=== PATIENT | female | born 1985 | race Caucasian/White ===

== ENCOUNTER 2017-04-18 15:21 | Emergency (ER) | payer SELFPAY ==
[~2017-04-18] VITALS: Ht 149.9 cm; Wt 44.5 kg
[~2017-04-18 15:21] MED LIST: CEPH500C3 PO; IBUP800 PO
[2017-04-18 15:23] VITALS: BP 128/82; PULSE 100; RESP 24; TEMP 98.8; O2SAT 97
--- NOTE | 2017-04-18 16:00 | RADRPT ---
EXAM DATE/TIME: 04/18/2017 15:53 [place] COMPARISON: No previous studies available for comparison. INDICATIONS : Chest pain. MEDICAL HISTORY : None. SURGICAL HISTORY : None. ENCOUNTER: Initial ACUITY: 2 days PAIN SCORE: 8/10 LOCATION: Bilateral chest FINDINGS: A single view of the chest demonstrates the lungs to be symmetrically aerated without evidence of mas s, infiltrate or effusion. The cardiomediastinal contours are unremarkable. Osseous structures are intact. CONCLUSION: No acute disease. Valerio Barton MD on April 18, 2017 at 15:56 Board Certified Radiologist. This report was verified electronically.
[2017-04-18 16:06] LABS: AUTOMATED NEUTROPHIL # 8.5 TH/MM3 (1.8-7.7); BASOPHIL % 0.3 % (0.0-2.0); EOSINOPHIL % 0.2 % (0.0-4.0); HEMATOCRIT 43.5 % (35.0-46.0); HEMOGLOBIN 14.7 GM/DL (11.6-15.3); LYMPH % 12.9 % (9.0-44.0); LYMPHOCYTE # 1.4 TH/MM3 (1.0-4.8); MEAN CELL VOLUME 88.3 FL (80.0-100.0); MEAN CORPUSCULAR HEMOGLOBIN 29.8 PG (27.0-34.0); MEAN CORPUSCULAR HGB CONC 33.8 % (32.0-36.0); MEAN PLATELET VOLUME 8.3 FL (7.0-11.0); MONO % 8.8 % (0.0-8.0); NEUT % 77.8 % (16.0-70.0); PLATELET COUNT 322 TH/MM3 (150-450); RED BLOOD COUNT 4.93 MIL/MM3 (4.00-5.30); RED CELL DISTRIBUTION WIDTH 14.3 % (11.6-17.2); WHITE BLOOD COUNT 10.9 TH/MM3 (4.0-11.0)
[2017-04-18 16:26] LABS: BICARBONATE 23.5 MEQ/L (21.0-32.0); BLOOD UREA NITROGEN 8 MG/DL (7-18); CALCIUM 9.4 MG/DL (8.5-10.1); CHLORIDE 104 MEQ/L (98-107); CREATININE 0.62 MG/DL (0.50-1.00); GLOMERULAR FILTRATION RATE 114 ML/MIN (>89); GLUCOSE,RANDOM 83 MG/DL (74-106); SODIUM (NA) 137 MEQ/L (136-145)
[2017-04-18 16:29] LABS: TROPONIN I LESS THAN 0.02 NG/ML (0.02-0.05)
--- NOTE | 2017-04-18 18:19 | PD ---
HPI Chief Complaint: Chest Pain Time Seen by Provider: 18:11 Travel History International Travel<30 days: No Contact w/Intl Traveler<30days: No Traveled to known affect area: No History of Present Illness HPI 31-year-old female here for evaluation of chest pain. The patient reports sharp right-sided chest pain for the last 2 days that is moderate, worse with coughing and deep inspiration. She takes control. No hemoptysis. No history of DVT or PE. No history of cardiac disease. No fevers, chills, or recent illness. Cough is nonproductive. No paresthesias or motor deficits. No family history of cardiac disease. She is a nonsmoker and denies illicit drug use. Cardiac workup was performed in triage including labs, cardiac enzymes, EKG, and chest x-ray, no results are essentially unremarkable. PFSH Past Medical History Diminished Hearing: No Insomnia: No Immunizations Current: No : 3 Para: 1 Miscarriage: 1 : 1 Past Surgical History Section: Yes Gynecologic Surgery: Yes (C SECTION) Insulin Pump: No Thoracic Surgery: No Social History Alcohol Use: No Tobacco Use: Yes (1 -2 CIG DAILY) Substance Use: Yes (marijuana) Allergies-Medications (Allergen,Severity, Reaction): Coded Allergies: No Known Allergies (Verified , 01/11/15) Reported Meds & Prescriptions Reported Meds & Active Scripts Active Motrin 800 Mg Tab (Ibuprofen) 800 Mg Tab 800 Mg PO Q8H PRN 10 Days Keflex (Cephalexin Monohydrate) 500 Mg Cap 500 Mg PO BID Review of Systems Except as stated in HPI: all other systems reviewed are Neg Physical Exam Narrative GENERAL: Well-developed, well-nourished, comfortable, no apparent distress. SKIN: Focused skin assessment warm/dry. No rash. HEAD: Atraumatic. Normocephalic. EYES: Pupils equal and round. No scleral icterus. No injection or drainage. ENT: Mucous membranes pink and moist. NECK: Trachea midline. No JVD. CARDIOVASCULAR: Regular rate and rhythm. No murmur appreciated. RESPIRATORY: No accessory muscle use. Clear to auscultation. Breath sounds equal bilaterally. GASTROINTESTINAL: Abdomen soft, non-tender, nondistended. MUSCULOSKELETAL: No obvious deformities. No clubbing. No cyanosis. No edema. Moderate right anterior chest wall tenderness without crepitus, without step-off , without paradoxical chest wall movement. NEUROLOGICAL: Awake and alert. No obvious cranial nerve deficits. Motor grossly within normal limits. Normal speech. PSYCHIATRIC: Appropriate mood and affect; insight and judgment normal. Data Data Last Documented VS Vital Signs Date Time Temp Pulse Resp B/P (MAP) Pulse Ox O2 Delivery O2 Flow Rate FiO2 04/18/17 18:45 88 18 98 Room Air 04/18/17 15:23 98.8 128/82 (97) Orders Orders Electrocardiogram (04/18/17 15:30) Complete Blood Count With Diff (04/18/17 15:30) Basic Metabolic Panel (Bmp) (04/18/17 15:30) Ckmb (Isoenzyme) Profile (04/18/17 15:30) Troponin I (04/18/17 15:30) Chest, Single Ap (04/18/17 15:30) CKMB (04/18/17 15:42) CKMB% (04/18/17 15:42) D-Dimer (04/18/17 18:14) Ed Urine Pregnancytest Poc (04/18/17 18:14) Ketorolac Inj (Toradol Inj) (04/18/17 18:30) Labs Laboratory Tests Test 04/18/17 15:42 04/18/17 18:20 White Blood Count 10.9 TH/MM3 Red Blood Count 4.93 MIL/MM3 Hemoglobin 14.7 GM/DL Hematocrit 43.5 % Mean Corpuscular Volume 88.3 FL Mean Corpuscular Hemoglobin 29.8 PG Mean Corpuscular Hemoglobin Concent 33.8 % Red Cell Distribution Width 14.3 % Platelet Count 322 TH/MM3 Mean Platelet Volume 8.3 FL Neutrophils (%) (Auto) 77.8 % Lymphocytes (%) (Auto) 12.9 % Monocytes (%) (Auto) 8.8 % Eosinophils (%) (Auto) 0.2 % Basophils (%) (Auto) 0.3 % Neutrophils # (Auto) 8.5 TH/MM3 Lymphocytes # (Auto) 1.4 TH/MM3 Monocytes # (Auto) 1.0 TH/MM3 Eosinophils # (Auto) 0.0 TH/MM3 Basophils # (Auto) 0.0 TH/MM3 CBC Comment DIFF FINAL Differential Comment Blood Urea Nitrogen 8 MG/DL Creatinine 0.62 MG/DL Random Glucose 83 MG/DL Calcium Level 9.4 MG/DL Sodium Level 137 MEQ/L Potassium Level 4.7 MEQ/L Chloride Level 104 MEQ/L Carbon Dioxide Level 23.5 MEQ/L Anion Gap 10 MEQ/L Estimat Glomerular Filtration Rate 114 ML/MIN Total Creatine Kinase 251 U/L Creatine Kinase MB 2.1 NG/ML Creatine Kinase MB % 0.8 % Troponin I LESS THAN 0.02 NG/ML D-Dimer Quantitative (PE/DVT) 0.28 MG/L FEU [facility] Medical Decision Making Medical Screen Exam Complete: Yes Emergency Medical Condition: Yes Interpretation(s) EKG: Sinus, rate 72, rightward axis, normal intervals, no acute ischemic abnormality. Differential Diagnosis ACS, pneumothorax, pericarditis, PE, pneumonia, musculoskeletal pain Narrative Course Vital signs reviewed. CBC is unremarkable. BMP is unremarkable. Cardiac enzymes are negative. Chest x-ray: No acute disease. D-dimer is negative at 0.28. Urine is negative. The patient was given a dose of IV Toradol and on reassessment she states that her pain is still there, however is improved. She has right chest wall tenderness, and her symptoms are more consistent with musculoskeletal etiology. I do not believe that her pain is cardiac or pulmonary in nature. She states that she does do heavy weight lifting. She was made aware of all findings. She is stable for discharge home with outpatient follow-up with a primary care physician this week. She was advised on when to return to the emergency department. She verbalizes understanding and agreement with plan. Diagnosis Primary Impression: Atypical chest pain Referrals: Primary Care Physician 3 days Additional Instructions: Follow-up with a primary care physician this week. Return to the emergency department for worsening symptoms or any other concerns. Scripts Naproxen (Naproxen) 500 Mg Tab 500 MG PO BID for 14 Days, #28 TAB 0 Refills Prov: Syed Pierre MD 04/18/17 Disposition: 01 DISCHARGE HOME Condition: Stable Syed Pierre MD Apr 18, 2017 18:19
[2017-04-18] MEDS ORDERED: KETOROLAC TROMETHAMINE 30 MG/ML (IVP) VIAL IV PUSH ONE (18:30)
[2017-04-18] MEDS ORDERED: NAPR500T2 PO (19:47)
--- NOTE | 2017-04-19 19:01 | EKG ---
Date Performed: 04/18/2017 Time Performed: 15:37:51 PTAGE: 31 years EKG: Sinus rhythm BORDERLINE RIGHT AXIS DEVIATION BORDERLINE ECG NO PREVIOUS TRACING DOCTOR: Deric Molina Interpretating Date/Time 04/19/2017 19:00:49
== END 2017-04-18 20:21 | disposition home or self-care (01) ==
LOC: NEPD 15:21
DX: R07.89 Other chest pain (principal); R05 Cough; F17.210 Nicotine dependence, cigarettes, uncomplicated; Z79.899 Other long term (current) drug therapy
CPT/HCPCS: 71045; 80048; 82550; 82552; 84484; 84703; 85025; 85379; 93005; 96374; 99285; J1885